=== PATIENT | male | born 1990 | race African-American/Black ===

== ENCOUNTER 2018-11-30 08:18 | Inpatient (IN) | payer SELFPAY ==
[~2018-11-30] VITALS: Ht 182.9 cm; Wt 127.0 kg
[~2018-11-30 08:18] MED LIST: BUSPAR10 MG ORAL
[2018-11-30] MEDS ORDERED: DEPAKOTE250 MG PO (08:19)
--- NOTE | 2018-11-30 08:29 | Emergency Room Report ---
History of Present Illness General Chief Complaint: Upper Respiratory Illness Source: Patient, EMS Present Illness HPI [facility]amed[facility] for altered level of consciousness. The patient was diagnosed with pneumonia 3 days ago at [facility]. Apparently antibiotics were never filled. He still has a slight productive cough. He felt hot to the paramedics but temperature here is normal. He feels thirsty and somewhat dehydrated at this time. The patient takes Wellbutrin and Depakote. He says he has been taking his usual medications and not any excessive amounts. He uses cannabis but denies alcohol or other drugs although other drugs are available at the [id number] around him where he resides. He denies suicidal or homicidal ideation. No sore throat, chest pain, palpitations, nausea, vomiting, diarrhea, dysuria, abdominal pain, shortness of breath, joint pain, rashes, depression, anxiety, visual changes, headache. History of schizophrenia. Allergies: Coded Allergies: PALIPERIDONE (Verified Allergy, Severe, Hives, 11/30/18) Patient History Past Medical History: see triage record Social History: Reports: drug use - See tox screen; Denies: smoking, alcohol use Social History Narrative board and care - born [place] Reviewed Nursing Documentation: PMH: Agreed; PSxH: Agreed Nursing Documentation-PM Past Medical History: No History, Except For History Of Psychiatric Problem: Yes - schizophrenic, bipolar Review of Systems All Other Systems: negative except mentioned in HPI Physical Exam Vital Signs Date Time Temp Pulse Resp B/P (MAP) Pulse Ox O2 Delivery O2 Flow Rate FiO2 11/30/18 08:13 98.4 98 16 140/80 (100) 98 Room Air Sp02 EP Interpretation: reviewed, normal General Appearance: no apparent distress, GCS 15, obese, other - slurred speech Head: normocephalic, atraumatic Eyes: bilateral eye PERRL, bilateral eye EOMI, bilateral eye Scleral Injection ENT: dry mucus membranes Neck: supple Respiratory: no respiratory distress, no retraction, no accessory muscle use, crackles Cardiovascular #1: regular rate, rhythm, no edema Cardiovascular #2: 2+ radial (L) Gastrointestinal: normal bowel sounds, non tender, soft, overweight Genitourinary: no CVA tenderness Musculoskeletal: back normal, digits/nails normal, no calf tenderness Neurologic: alert, oriented x3, motor strength/tone normal, DTRs symmetric, sensory intact, other - slurred speech, slightly slow to respond but appropriate answers Psychiatric: no suicidal/homicidal ideation, depressed affect Skin: no rash Medical Decision Making Diagnostic Impression: Primary Impression: Elevated lactic acid level Additional Impressions: Leukocytosis Qualified Codes: D72.828 - Other elevated white blood cell count Noncompliance Substance abuse Altered level of consciousness Schizophrenia Qualified Codes: F20.9 - Schizophrenia, unspecified ER Course Patient presents with altered level of consciousness, dehydration and a history of pneumonia with noncompliance with antibiotics. Differential includes acute pneumonia, electrolyte imbalance, medication excess, sepsis, dehydration amongst others. Evaluation will be with EKG, chest x-ray and labs. Patient will receive IV hydration and antibiotics. He is placed on a security monitor. Elevated WBC and lactate. Tox screen positive for benzos and amphetamine along with THC. Rocephin given. CXR no sig infiltrate. Lactate min improved after bolus. Continued hydration. + substance abuse via tox screen. Depakote nil. Source of leukocytosis and elevated lactic acid unclear. Admit hospital Laboratory Tests Test 11/30/18 08:45 11/30/18 10:25 White Blood Count 16.0 K/UL (4.8-10.8) H Red Blood Count 4.80 M/UL (4.70-6.10) Hemoglobin 14.6 G/DL (14.2-18.0) Hematocrit 41.9 % (42.0-52.0) L Mean Corpuscular Volume 87 FL (80-99) Mean Corpuscular Hemoglobin 30.3 PG (27.0-31.0) Mean Corpuscular Hemoglobin Concent 34.7 G/DL (32.0-36.0) Red Cell Distribution Width 11.7 % (11.6-14.8) Platelet Count 383 K/UL (150-450) Mean Platelet Volume 5.9 FL (6.5-10.1) L Neutrophils (%) (Auto) 69.6 % (45.0-75.0) Lymphocytes (%) (Auto) 22.0 % (20.0-45.0) Monocytes (%) (Auto) 6.8 % (1.0-10.0) Eosinophils (%) (Auto) 0.4 % (0.0-3.0) Basophils (%) (Auto) 1.1 % (0.0-2.0) Prothrombin Time 10.7 SEC (9.30-11.50) Prothrombin Time INR 1.0 (0.9-1.1) PTT 24 SEC (23-33) Sodium Level 136 MMOL/L (136-145) Potassium Level 3.9 MMOL/L (3.5-5.1) Chloride Level 103 MMOL/L (98-107) Carbon Dioxide Level 26 MMOL/L (21-32) Anion Gap 7 mmol/L (5-15) Blood Urea Nitrogen 12 mg/dL (7-18) Creatinine 1.2 MG/DL (0.55-1.30) Estimate Glomerular Filtration Rate > 60 mL/min (>60) Glucose Level 79 MG/DL (74-106) Lactic Acid Level 2.60 mmol/L (0.4-2.0) H 2.50 mmol/L (0.66-2.22) H Calcium Level 9.6 MG/DL (8.5-10.1) Total Bilirubin 0.5 MG/DL (0.2-1.0) Aspartate Amino Transferase (AST) 52 U/L (15-37) H Alanine Aminotransferase (ALT) 33 U/L (12-78) Alkaline Phosphatase 82 U/L (46-116) Total Creatine Kinase 1548 U/L (26-308) H Troponin I 0.000 ng/mL (0.000-0.056) Pro-B-Type Natriuretic Peptide 37 pg/mL (0-125) Total Protein 8.1 G/DL (6.4-8.2) Albumin 3.7 G/DL (3.4-5.0) Globulin 4.4 g/dL Albumin/Globulin Ratio 0.8 (1.0-2.7) L Valproic Acid Level < 3 MCG/ML (50-100) L Serum Alcohol < 3 mg/dL Urine Color Yellow Urine Appearance Clear Urine pH 6 (4.5-8.0) Urine Specific [place] 1.015 (1.005-1.035) Urine Protein Negative (NEGATIVE) Urine Glucose (UA) Negative (NEGATIVE) Urine Ketones Negative (NEGATIVE) Urine Blood Negative (NEGATIVE) Urine Nitrite Negative (NEGATIVE) Urine Bilirubin Negative (NEGATIVE) Urine Urobilinogen Normal MG/DL (0.0-1.0) Urine Leukocyte Esterase Negative (NEGATIVE) Urine Opiates Screen Negative (NEGATIVE) Urine Barbiturates Screen Negative (NEGATIVE) Phencyclidine (PCP) Screen Negative (NEGATIVE) Urine Amphetamines Screen Positive (NEGATIVE) H Urine Benzodiazepines Screen Positive (NEGATIVE) H Urine Cocaine Screen Negative (NEGATIVE) Urine Marijuana (THC) Screen Positive (NEGATIVE) H EKG Diagnostic Results Rate: tachycardiac Rhythm: NSR ST Segments: no acute changes Rhythm Strip Diag. Results EP Interpretation: yes Rhythm: no PVC's, no ectopy, other - ST Chest X-Ray Diagnostic Results Chest X-Ray Diagnostic Results : Chest X-Ray Ordered: Yes # of Views/Limited/Complete: 1 View Indication: Other EP Interpretation: Yes Interpretation: no consolidation, no effusion, no pneumothorax Impression: No acute disease Electronically Signed by: Electronically signed by Fabiano Pablo MD Last Vital Signs Date Time Temp Pulse Resp B/P (MAP) Pulse Ox O2 Delivery O2 Flow Rate FiO2 11/30/18 15:59 98.3 102 20 134/87 (103) 98 11/30/18 12:05 Room Air Status: improved Disposition: ADMITTED INPATIENT Condition: Serious Fabiano Pablo MD Nov 30, 2018 08:29
[2018-11-30] MEDS ORDERED: cefTRIAXone 1 GM in NS 55 ML IV SCH (08:30)
--- NOTE | 2018-11-30 08:30 | NUR ---
ED Nurse Note: Pt walked in the ER with case work aide from [facility] due to "not feeling well/lethargic" x 1 week. Pt was recently diagnosed with Pneumonia but has not been taking his medications because of insurance issue. No complaint of pain kayley. Cough with clear phlegm reported. Vital signs stable kayley. Will cont to monitor.
[2018-11-30] MEDS ORDERED: BENZTROPINE ME0.5 MG PO (08:52)
[2018-11-30] MEDS ORDERED: HALDOL DEC100 MG/1 M IM (08:52)
[2018-11-30] MEDS ORDERED: VALPROIC ACID250 MG PO (08:52)
--- NOTE | 2018-11-30 08:53 | NUR ---
ED Nurse Note: pt with program caregiver at bedside, unable to recall allergy name. does provide meds used, updated in med recon.
[2018-11-30 09:00] LABS: BASOPHILS % (AUTO) 1.1 % (0.0-2.0); EOSINOPHILS % (AUTO) 0.4 % (0.0-3.0); HEMATOCRIT 41.9 % (42.0-52.0); HEMOGLOBIN 14.6 G/DL (14.2-18.0); MEAN CORPUSCULAR VOLUME 87 FL (80-99); MONOCYTES % (AUTO) 6.8 % (1.0-10.0); NEUTROPHILS % (AUTO) 69.6 % (45.0-75.0); PLATELET COUNT 383 K/UL (150-450); RED CELL DISTRIBUTION WIDTH 11.7 % (11.6-14.8)
--- NOTE | 2018-11-30 09:00 | NUR ---
ED Nurse Note: Pt refuses to urinate at this time, fluid given. Pt stated that he will try again.
[2018-11-30 09:14] LABS: ANION GAP 7 mmol/L (5-15); BLOOD UREA NITROGEN 12 mg/dL (7-18); CALCIUM 9.6 MG/DL (8.5-10.1); CARBON DIOXIDE 26 MMOL/L (21-32); CHLORIDE 103 MMOL/L (98-107); CREATININE 1.2 MG/DL (0.55-1.30); POTASSIUM 3.9 MMOL/L (3.5-5.1); SODIUM 136 MMOL/L (136-145)
[2018-11-30 09:17] VITALS: BP 136/97
[2018-11-30 09:27] LABS: ALANINE AMINOTRANSFERASE 33 U/L (12-78); ALBUMIN 3.7 G/DL (3.4-5.0); ALBUMIN/GLOBULIN RATIO 0.8 (1.0-2.7); ALKALINE PHOSPHATASE 82 U/L (46-116); ASPARTATE AMINO TRANSFERASE 52 U/L (15-37); BILIRUBIN,TOTAL 0.5 MG/DL (0.2-1.0); CREATINE KINASE 1548 U/L (26-308)
--- NOTE | 2018-11-30 10:05 | NUR ---
ED Nurse Note: Sanwich and juice provided at bedside kayley, ERMD confirmed that its ok for pt to eat. Pt tolerates well.
[2018-11-30 10:43] LABS: APPEARANCE,URINE CLEAR; BILIRUBIN, URINE NEGATIVE (NEGATIVE); GLUCOSE, URINE (UA) NEGATIVE (NEGATIVE); KETONES,URINE NEGATIVE (NEGATIVE); LEUKOCYTE ESTERASE ,URINE NEGATIVE (NEGATIVE); NITRITE,URINE NEGATIVE (NEGATIVE); PH,URINE 6 (4.5-8.0); PROTEIN,URINE NEGATIVE (NEGATIVE); UROBILINOGEN,URINE NORMAL MG/DL (0.0-1.0)
[2018-11-30 10:44] LABS: COLOR,URINE YELLOW
--- NOTE | 2018-11-30 10:57 | Diagnostic Imaging Report ---
Indication: Cough Comparison: None A single view chest radiograph was obtained. Findings: Cardiomediastinal appearance is within normal limits for age. The lungs are clear. Pulmonary vascularity is appropriate. The diaphragmatic contour is smooth and costophrenic angles are sharp. No pleural effusions are identified. The bones are unremarkable. Impression: No acute findings
--- NOTE | 2018-11-30 11:00 | NUR ---
ED Nurse Note: sub plant manager Mark Moraes @[phone]
--- NOTE | 2018-11-30 11:03 | NUR ---
ED Nurse Note: Report given to BRANDON Mckeon at ext [phone]. Pt to be transfered to room 415-1 on [facility] per protocol.
[2018-11-30 11:05] VITALS: BP 134/78
[2018-11-30 12:00] VITALS: BP 121/50
--- NOTE | 2018-11-30 12:00 | NUR ---
NURSE NOTES: received patient A/A/Ox4, able to ambulate with moderate assist as of this time. patient refused for his bills $85 to be stored in the safe and signed the declination personal belonging list, reviewed and noted. patient is verbally responsive and able to make things known. skin is intact. VSS. PMD notified for admission location. NO c/o pain/discomfort noted. will cont to monitor.
[2018-11-30] MEDS ORDERED: Albuterol/Ipratropium 3ml neb HHN PRN (12:45)
[2018-11-30] MEDS ORDERED: Morphine Sulfate 4mg/ml Inj (IV USE ONLY) IVP PRN (12:45)
[2018-11-30] MEDS ORDERED: Miralax 17gm pkt ORAL PRN (12:45)
[2018-11-30] MEDS ORDERED: Morphine Sulfate 2mg/ml Inj(IV/IM USE ONLY) IVP PRN (13:00)
[2018-11-30] MEDS ORDERED: Vancomycin 1.5gm Premix IVPB SCH (14:00)
[2018-11-30 15:59] VITALS: BP 134/87
[2018-11-30] MEDS ORDERED: BusPIRone 5mg Tab ORAL SCH (18:00)
--- NOTE | 2018-11-30 18:44 | NUR ---
NURSE NOTES: patient removed IV access and made PMD aware. patient changed his mind from AMA though i had informed Dr England. I called and left voicemessage to MICHAELA Flores regarding the issue. patient is back to his room. his gait in unsteady and explained to him the importance and indications of his stay. will cont to monitor.
--- NOTE | 2018-11-30 19:20 | NUR ---
NURSE NOTES: convey the message to BRANDON Page regarding AMA per PMD instructions.
--- NOTE | 2018-11-30 19:21 | NUR ---
HAND-OFF: Report given to Kaylee.
--- NOTE | 2018-11-30 19:26 | NUR ---
CASE MANAGEMENT: REVIEW 28Y/M BIBA FROM [facility] CC: UPPER RESP ILLNESS . COUGH W/CLEAR PHLEGM SI: PNA . ALOC . SUBSTANCE ABUSE T 98.4 HR 102 RR 21 BP 121/50 SAT 98% ROOM AIR WBC 16.0 IS: NS IVF IV X1 [id number] IV X1 PATIENT ADMITTED TO MED/SURG UNIT 11/30/2018 DCP: PATIENT IS FROM [facility]
--- NOTE | 2018-11-30 19:35 | NUR ---
NURSE NOTES: Patient signed AMA at 1930. Dr England made aware. No IV access, hospital band removed, VSS.
--- NOTE | 2018-11-30 20:00 | Consultation ---
History of Present Illness General Date patient seen: Nov 30, 2018 Chief Complaint: Upper Respiratory Illness Present Illness HPI 28 y/o M with hx of schizoaffective disorder, [facility] resident presented to ED on 11/30 with AMS. Of note, patient was diagnosed with PNA at [facility]. He was discharged on antibiotics and apparently antibiotics were never filled. Still has slight productive cough. Denies sore throat, CP, n/v/d, abd pain, SOB. Allergies: Coded Allergies: PALIPERIDONE (Verified Allergy, Severe, Hives, 11/30/18) Medication History Scheduled Benztropine Mesylate* (Cogentin*), 2 MG PO QHS, (Reported) Buspirone Hcl* (Buspar*), 10 MG ORAL BID, (Reported) Haloperidol Decanoate (Haldol Decanoate 100), 100 MG IM every month, (Reported) Valproic Acid (Valproic Acid), 500 MG PO BID, (Reported) Discontinued Medications Divalproex Sodium* (Depakote*), MG PO Q12HR, (Reported) Discontinued Reason: Pt stopped taking med Patient History Healthcare decision maker Resuscitation status Advanced Directive on File Patient History Narrative Pmhx: as above Shx: He uses cannabis but denies alcohol or other drugs Fhx: non contributory Review of Systems All Other Systems: negative except mentioned in HPI Physical Exam Physical Exam Narrative General Appearance: no apparent distress, GCS 15, obese, other - slurred speech ENT: dry mucus membranes Neck: supple Respiratory: no respiratory distress, no retraction, no accessory muscle use, crackles Cardiovascular : regular rate, rhythm, no edema Gastrointestinal: normal bowel sounds, non tender, soft, overweight Genitourinary: no CVA tenderness Musculoskeletal: back normal, digits/nails normal, no calf tenderness Neurologic: alert, oriented x3, motor strength/tone normal, DTRs symmetric, sensory intact, other - slurred speech, slightly slow to respond but appropriate answers Psychiatric: mood/affect normal, no suicidal/homicidal ideation Skin: no rash Last 24 Hour Vital Signs Date Time Temp Pulse Resp B/P (MAP) Pulse Ox O2 Delivery O2 Flow Rate FiO2 11/30/18 15:59 98.3 102 20 134/87 (103) 98 11/30/18 12:05 Room Air 11/30/18 12:00 98.1 91 21 121/50 (73) 100 11/30/18 11:05 98.4 89 18 134/78 98 Room Air 11/30/18 11:05 98.4 92 20 136/97 98 Room Air 11/30/18 09:17 98.4 92 20 136/97 98 Room Air 11/30/18 08:56 98 16 Room Air 11/30/18 08:13 98.4 98 16 140/80 (100) 98 Room Air Laboratory Tests Test 11/30/18 08:45 11/30/18 10:25 White Blood Count 16.0 K/UL (4.8-10.8) H Red Blood Count 4.80 M/UL (4.70-6.10) Hemoglobin 14.6 G/DL (14.2-18.0) Hematocrit 41.9 % (42.0-52.0) L Mean Corpuscular Volume 87 FL (80-99) Mean Corpuscular Hemoglobin 30.3 PG (27.0-31.0) Mean Corpuscular Hemoglobin Concent 34.7 G/DL (32.0-36.0) Red Cell Distribution Width 11.7 % (11.6-14.8) Platelet Count 383 K/UL (150-450) Mean Platelet Volume 5.9 FL (6.5-10.1) L Neutrophils (%) (Auto) 69.6 % (45.0-75.0) Lymphocytes (%) (Auto) 22.0 % (20.0-45.0) Monocytes (%) (Auto) 6.8 % (1.0-10.0) Eosinophils (%) (Auto) 0.4 % (0.0-3.0) Basophils (%) (Auto) 1.1 % (0.0-2.0) Prothrombin Time 10.7 SEC (9.30-11.50) Prothromb Time International Ratio 1.0 (0.9-1.1) Activated Partial Thromboplast Time 24 SEC (23-33) Sodium Level 136 MMOL/L (136-145) Potassium Level 3.9 MMOL/L (3.5-5.1) Chloride Level 103 MMOL/L (98-107) Carbon Dioxide Level 26 MMOL/L (21-32) Anion Gap 7 mmol/L (5-15) Blood Urea Nitrogen 12 mg/dL (7-18) Creatinine 1.2 MG/DL (0.55-1.30) Estimat Glomerular Filtration Rate > 60 mL/min (>60) Glucose Level 79 MG/DL (74-106) Lactic Acid Level 2.60 mmol/L (0.4-2.0) H 2.50 mmol/L (0.66-2.22) H Calcium Level 9.6 MG/DL (8.5-10.1) Total Bilirubin 0.5 MG/DL (0.2-1.0) Aspartate Amino Transf (AST/SGOT) 52 U/L (15-37) H Alanine Aminotransferase (ALT/SGPT) 33 U/L (12-78) Alkaline Phosphatase 82 U/L (46-116) Total Creatine Kinase 1548 U/L (26-308) H Troponin I 0.000 ng/mL (0.000-0.056) Pro-B-Type Natriuretic Peptide 37 pg/mL (0-125) Total Protein 8.1 G/DL (6.4-8.2) Albumin 3.7 G/DL (3.4-5.0) Globulin 4.4 g/dL Albumin/Globulin Ratio 0.8 (1.0-2.7) L Valproic Acid (Depakene) Level < 3 MCG/ML (50-100) L Serum Alcohol < 3 mg/dL Urine Color Yellow Urine Appearance Clear Urine pH 6 (4.5-8.0) Urine Specific [place] 1.015 (1.005-1.035) Urine Protein Negative (NEGATIVE) Urine Glucose (UA) Negative (NEGATIVE) Urine Ketones Negative (NEGATIVE) Urine Blood Negative (NEGATIVE) Urine Nitrite Negative (NEGATIVE) Urine Bilirubin Negative (NEGATIVE) Urine Urobilinogen Normal MG/DL (0.0-1.0) Urine Leukocyte Esterase Negative (NEGATIVE) Urine Opiates Screen Negative (NEGATIVE) Urine Barbiturates Screen Negative (NEGATIVE) Phencyclidine (PCP) Screen Negative (NEGATIVE) Urine Amphetamines Screen Positive (NEGATIVE) H Urine Benzodiazepines Screen Positive (NEGATIVE) H Urine Cocaine Screen Negative (NEGATIVE) Urine Marijuana (THC) Screen Positive (NEGATIVE) H Microbiology Date/Time Source Procedure Growth Status 11/30/18 17:00 Rectum Received Height (Feet): 6 Height (Inches): 0.00 Weight (Pounds): 280 Medications Current Medications Medications (Trade) Dose Ordered Sig/Kesha Route PRN Reason Start Time Stop Time Status Last Admin Dose Admin Acetaminophen (Tylenol) 650 mg Q4H PRN ORAL FEVER (temp>100.5F) 11/30/18 12:45 12/30/18 12:44 Albuterol/ Ipratropium (Albuterol/ Ipratropium) 3 ml Q4H PRN HHN Shortness of Breath 11/30/18 12:45 12/05/18 12:44 Buspirone HCl (Buspar) 10 mg BID ORAL 11/30/18 18:00 12/30/18 17:59 11/30/18 17:13 Cefepime HCl 2 gm/ Dextrose 110 ml @ 220 mls/hr EVERY 12 HOURS IV 11/30/18 21:00 12/07/18 20:59 Dextrose (Dextrose 50%) 25 ml Q30M PRN IV Hypoglycemia 11/30/18 12:45 12/30/18 12:44 Dextrose (Dextrose 50%) 50 ml Q30M PRN IV Hypoglycemia 11/30/18 12:45 12/30/18 12:44 Heparin Sodium (Porcine) (Heparin 5000 units/ml) 5,000 units EVERY 12 HOURS SUBQ 11/30/18 21:00 12/30/18 20:59 Morphine Sulfate (Morphine Sulfate) 2 mg Q4H PRN IVP Severe Pain (Pain Scale 7-10) 11/30/18 13:00 12/07/18 12:44 Ondansetron HCl (Zofran) 4 mg Q6H PRN IVP Nausea & Vomiting 11/30/18 12:45 12/30/18 12:44 Polyethylene Glycol (Miralax) 17 gm DAILYPRN PRN ORAL Constipation 11/30/18 12:45 12/30/18 12:44 Valproic Acid (Depakene) 500 mg BID ORAL 11/30/18 18:00 12/30/18 17:59 11/30/18 17:13 Vancomycin HCl (Vanco rx to dose) 1 ea DAILY PRN MISC per RX protocol 11/30/18 13:15 12/30/18 13:14 Vancomycin HCl/ Dextrose 275 ml @ 137.5 mls/ hr Q8HR IVPB 11/30/18 14:00 12/05/18 13:59 11/30/18 14:33 Assessment/Plan Assessment/Plan: Abx: IV Vancomycin 11/30- Cefepime 11/30- Ceftriaxone x1 11/30 Assessment: Acute encephalopathy Recent PNA, cough -CXR: No acute findings Afebrile Leukocytosis -u/a neg schizoaffective disorder boarding [facility] resident Plan: - -f/u cx -Monitor CBC/CMP, temperatures -Cdiff if diarrhea Thank you for this consultation. Will continue to follow along with you. Discussed with Debby Ruiz M.D. Nov 30, 2018 20:00
--- NOTE | 2018-11-30 20:29 | History & Physical ---
History and Physical History & Physicial Dictated for Int Med-Dr Rey no. [id number] Chris Woo MD Nov 30, 2018 20:29
[2018-11-30] MEDS ORDERED: Cefepime HCl 2 GM in D5W 110 ML IV SCH (21:00)
[2018-11-30] MEDS ORDERED: Heparin 5000 units/ml inj SUBQ SCH (21:00)
[2018-11-30] MEDS ORDERED: Vancomycin 1 GM in D5W 275 ML IV SCH (23:00)
--- NOTE | 2018-11-30 23:00 | History and Physical Report ---
DATE OF ADMISSION: 11/30/2018 CHIEF COMPLAINT: The patient is a 28-year-old, male, who presents with a chief complaint of altered mental status. HISTORY OF PRESENT ILLNESS: The patient is a resident of [facility]. The patient apparently was diagnosed with pneumonia in [facility] 3 days prior to admission. Apparently, the patient never received his antibiotics upon discharge. The patient presented to [facility] emergency room after EMS was called by the [facility]. The patient has become increasingly altered. The patient presents today with a chief complaint of altered mental status and history of acute pneumonia. REVIEW OF SYSTEMS: CONSTITUTIONAL: The patient denies weight loss or weight gain. The patient denies fevers or chills. HEENT: Unable to assess secondary to the patient's mental status. PAST MEDICAL HISTORY: Significant for what appears to be bipolar depression. PAST SURGICAL HISTORY: Unknown. CURRENT MEDICATIONS: 1. Depakote 500 mg one tablet p.o. twice daily. 2. Haldol 100 mg intramuscularly monthly. 3. BuSpar 10 mg p.o. twice daily. 4. Cogentin 2 mg p.o. at bedtime. ALLERGIES: Paliperidone. SOCIAL HISTORY: The patient is single and lives at [facility] as above. PHYSICAL EXAMINATION: VITAL SIGNS: Temperature 98.4, respirations 16, pulse 98, blood pressure 140/80, and pulse ox 98% on room air. GENERAL: The patient is a well-developed and well-nourished obese male, in no apparent distress. HEENT: Eyes, pupils are equal and responsive to light and accommodation. Extraocular movements are intact. NECK: Supple without lymphadenopathy. CHEST: Lungs are clear to auscultation bilaterally without wheezes or rales. CARDIOVASCULAR: Regular rhythm and rate. S1 and S2 are normal without murmurs, rubs, or gallops. ABDOMEN: Soft, nontender, and nondistended. Positive bowel sounds. No evidence of hepatosplenomegaly. Currently, no rebound or guarding noted. EXTREMITY: Negative for clubbing, cyanosis, or edema. RECTAL/GENITAL: Refused. NEUROLOGIC: Cranial nerves II through XII is grossly intact without focal deficits. LABORATORY STUDIES: WBC 16.3, hemoglobin 14.6, hematocrit 41.9, and platelets 383,000. Sodium 136, potassium 3.9, chloride 103, CO2 26, BUN 12, creatinine 1.2, and glucose 79. Lactic acid 2.60. Chest x-ray was reported as no acute disease. ASSESSMENT: This is a 28-year-old male. 1. Altered mental status. 2. Recent diagnosis of pneumonia. 3. Leukocytosis. 4. Bipolar depression. TREATMENT: 1. Altered mental status. This may be secondary to pneumonia. The patient also has a history of bipolar depression. This could be psychiatric in nature as well. 2. Pneumonia. The patient has been started empirically on cefepime and vancomycin. A Pulmonary consultation has been obtained with Dr. Jay England. 3. Leukocytosis. This may be secondary to pneumonia as above. 4. Bipolar depression. Continue Priti and Vickie as above. Chris Woo M.D. DR: ANAID JOB#: [id number] CC:
--- NOTE | 2018-12-04 07:35 | Discharge Summary ---
Discharge Summary Discharge Summary _ DATE OF ADMISSION: 11/30/2018 DATE OF DISCHARGE: 11/30/2018 Patient left AGAINST MEDICAL ADVICE REASON FOR ADMISSION: 28 years old male with past medical history of schizophrenia, bipolar disorder, presented from the [facility] with altered level of consciousness. Patient was diagnosed with pneumonia 3 days ago at [facility]. However, apparently patient never filled out antibiotic. Slight productive cough was reported. Patient felt thirsty and dehydrated. Upon evaluation vital signs were stable. Laboratory work-up revealed elevated WBC and lactate. CK 1548. Troponin negative. Stable electrolytes and renal parameters. Urinalysis revealed no evidence of UTI. Urine toxicology screen was positive for benzodiazepine, amphetamine and THC. Depakote level within normal limits. Serum alcohol level negative. Chest x-ray revealed no acute cardiopulmonary pathology. Patient received IV fluids and Rocephin empirically. Patient subsequently was admitted for further management. CONSULTANTS: ID specialist Dr. Delong [facility] COURSE: Patient admitted to medical surgical floor. ID and pulmonary consults were requested. Patient started on empiric antibiotics for pneumonia. Supplemental oxygen provided as needed to keep pulse oximetry above 92%. Pulmonary toilet with bronchodilator via handheld nebulizing was on standby as needed. Pulse oximetry stable on room air. Patient remained afebrile. At the time of this dictation blood culture negative. DVT prophylaxis provided. Depakote and BuSpar continued. Patient decided to sign AGAINST MEDICAL ADVICE. The risks and consequences of signing AGAINST MEDICAL ADVICE were discussed with patient in detail. Patient verbalized understanding, nevertheless signed AMA form and left. FINAL DIAGNOSES: Acute encephalopathy Recent diagnosis of pneumonia Leukocytosis Schizoaffective disorder Bipolar depression I have been assigned to dictate discharge summary for this account. I was not involved in the patient's management. Sobeida Washington NP Dec 04, 2018 07:35
== END 2018-11-30 19:30 | disposition left against medical advice (07) | DRG 194 ==
LOC: EDBD 08:18 → EMR 09:02 → 4E 09:36 → EDBEDREQ 10:57
DX: J18.9 Pneumonia, unspecified organism (principal); G93.40 Encephalopathy, unspecified; F31.9 Bipolar disorder, unspecified; Z88.8 Allergy status to other drugs, medicaments and biological substances; F25.9 Schizoaffective disorder, unspecified
CPT/HCPCS: 36415; 71045; 80053; 80164; 80307; 80329; 81003; 82550; 83605; 83880; 84484; 85025; 85610; 85730; 87040; 87081; 93005; 96365; 96366; 99285